=== PATIENT | female | born 1980 | race Caucasian/White ===

== ENCOUNTER 2020-12-12 14:31 | Observation (INO) | payer BC, SELFPAY ==
[2020-12-12] MEDS ORDERED: Fentanyl 100 MCG/2 ML VIAL ONE ×3 (14:46→18:35)
[2020-12-12] MEDS ORDERED: Ondansetron PF 4 MG/2 ML Vial ONE ×2 (14:46→18:51)
[2020-12-12] MEDS ORDERED: D5 1/2 NS w/20 mEq KCL 1,000 ML ONE (16:19)
[2020-12-12] MEDS ORDERED: Morphine 4 MG/ML VIAL ONE ×2 (16:19→20:03)
[2020-12-12 16:20] LABS: BHCG - Serum Negative (NEGATIVE); Pregs Control Background? CLEAR/WHITE (CLR/WHITE); Pregs Control Bar Appear? YES (CONTROL BAR)
[2020-12-12 16:22] LABS: #Eosinphils 0.1 10x3/uL (0.0-0.5); #Monocytes 0.8 10x3/uL (0.0-1.1); #Neutrophils 13.5 10x3/uL (1.5-8.4); %Basophils 0.2 % (0.0-2.0); %Eosinophils 0.5 % (0.0-6.0); %Lymphocytes 11.2 % (18.0-47.0); %Monocytes 4.7 % (0.0-10.0); %Neutrophils 82.9 % (40.0-75.0); Hemoglobin 13.6 g/dL (12.0-15.5); Mean Corpuscular HGB CONC 34.8 g/dL (32.0-36.0); Mean Corpuscular Hemoglobin 30.6 pg (27.0-33.0); Mean Corpuscular Volume 87.9 fl (81.6-98.3); Mean Platelet Volume 10.6 fl (7.4-10.4); Platelet Count 260 10x3/uL (150-450); RBC Distribution Width 12.6 % (11.5-14.5); Red Blood Cell (RBC) Count 4.45 10x6/uL (3.90-5.03); White Blood Cell (WBC) Count 16.3 10x3/uL (3.5-10.5)
[2020-12-12 16:25] LABS: Anion Gap 14 mmol/L (10-20); BUN (Urea Nitrogen) 15 mg/dL (7.0-18.7); Calc. Creatinine Clearance 0 mL/min (70-130); Calcium 9.4 mg/dL (7.8-10.44); Carbon Dioxide 21 mmol/L (22-29); Chloride 106 mmol/L (98-107); Glucose 94 mg/dL (70-105); Sodium 137 mmol/L (136-145)
[2020-12-12 16:47] LABS: SARS-CoV-2 NAA Rapid Test Not Detected (NotDetected)
[2020-12-12 17:18] VITALS: BMI 36.3
[2020-12-12] MEDS ORDERED: EPINEPHrine 1 MG/ML AMP ONE (17:21)
[2020-12-12] MEDS ORDERED: Bupivacaine PF 0.5% 30 ML VIAL ONE (17:22)
[2020-12-12] MEDS ORDERED: PROPOFOL 20 ML ONE (17:35)
[2020-12-12] MEDS ORDERED: Rocuronium Bromide 10 MG/ML (10ML VIAL) ONE (17:35)
[2020-12-12] MEDS ORDERED: Midazolam HCl 2 mg/2 ml Vial ONE (17:35)
[2020-12-12] MEDS ORDERED: Milk Of Magnesia 30 ML UDCUP PO PRN (18:26)
[2020-12-12] MEDS ORDERED: Cepastat Lozenges 1 LOZ PO PRN (18:26)
[2020-12-12] MEDS ORDERED: Ondansetron ODT 4 MG TAB PO PRN (18:26)
[2020-12-12] MEDS ORDERED: Acetaminophen 325 MG TAB PO PRN (18:26)
[2020-12-12] MEDS ORDERED: Ondansetron PF 4 MG/2 ML Vial IVP PRN (18:26)
[2020-12-12] MEDS ORDERED: Bisacodyl 10 MG SUPP PR PRN (18:26)
[2020-12-12] MEDS ORDERED: Fentanyl 100 MCG/2 ML VIAL SLOW IVP PRN (18:26)
[2020-12-12] MEDS ORDERED: HYDROcodone/Acetaminophen 10/325 mg Tablet PO PRN (18:29)
[2020-12-12] MEDS ORDERED: Dexamethasone 4 mg/ml Vial ONE (18:57)
[2020-12-12] MEDS ORDERED: Neomycin-Polymyxin 1 ML AMP ONE (19:18)
[2020-12-12] MEDS ORDERED: Glycopyrrolate 0.2 MG/ML 5 ML SYRINGE ONE (19:25)
[2020-12-12] MEDS ORDERED: Ketorolac Tromethamine 30 MG/ML VIAL ONE (20:03)
[2020-12-12] MEDS: HYDROcodone/Acetaminophen 10/325 mg Tablet PO PRN (21:40)
[2020-12-12] MEDS: Senokot S 8.6-50 MG TAB PO SCH (21:41)
[2020-12-13] MEDS: Ketorolac Tromethamine 30 MG/ML VIAL IVP SCH ×3 (00:44→12:26)
[2020-12-13] MEDS: Clindamycin/D5W 900 MG in Premix Bag 1 BAG IVPB SCH ×2 (02:00→02:05)
[2020-12-13] MEDS: HYDROcodone/Acetaminophen 10/325 mg Tablet PO PRN ×3 (03:10→12:27)
[2020-12-13] MEDS: Senokot S 8.6-50 MG TAB PO SCH (08:20)
[2020-12-13 08:25] VITALS: BP 101/62; TEMP 97.6
== END 2020-12-13 12:58 | disposition home or self-care (01) ==
LOC: CSHERS 14:31 → CSHTELE 16:21
PROVIDERS: ADMIT Neurological Surgery; ATTEND Neurological Surgery
PROC: 0QSH04Z Reposition Left Tibia with Internal Fixation Device, Open Approach (ICD-10-PCS; principal; 2020-12-12)
DX: S82.392A Other fracture of lower end of left tibia, initial encounter for closed fracture (principal); S82.492A Other fracture of shaft of left fibula, initial encounter for closed fracture; W18.39XA Other fall on same level, initial encounter; Y93.51 Activity, roller skating (inline) and skateboarding; Z88.1 Allergy status to other antibiotic agents; Z20.822 Contact with and (suspected) exposure to COVID-19
CPT/HCPCS: 76000; 80048; 84703; 85025; 96374; 96375; 96376; C1713; G0378; G0390; J0171; J1100; J1885; J2250; J2270; J2405; J2704; J3010; J3480; J3490; S0020; U0002

== ENCOUNTER 2022-11-14 15:39 | Outpatient (CLI) | payer BC | END 2022-11-14 15:40 | disposition home or self-care (01) | LOC: CSHRAD 15:39 | PROVIDERS: ATTEND Internal Medicine Rheumatology | DX: M79.89 Other specified soft tissue disorders (principal); M79.642 Pain in left hand; M79.641 Pain in right hand ==

== ENCOUNTER 2022-12-15 13:36 | Outpatient (CLI) | payer BC | END 2022-12-15 13:37 | disposition home or self-care (01) | LOC: CSHMAMMO 13:36 | PROVIDERS: ATTEND Internal Medicine | DX: Z12.31 Encounter for screening mammogram for malignant neoplasm of breast (principal); Z80.3 Family history of malignant neoplasm of breast | CPT/HCPCS: 77063; 77067 ==

== ENCOUNTER 2024-03-06 13:06 | Outpatient (CLI) | payer BC | END 2024-03-06 13:07 | disposition home or self-care (01) | LOC: CSHMAMMO 13:06 | PROVIDERS: ATTEND Internal Medicine | DX: Z12.31 Encounter for screening mammogram for malignant neoplasm of breast (principal); Z80.3 Family history of malignant neoplasm of breast | CPT/HCPCS: 77063; 77067 ==